=== PATIENT | female | born 2000 | race Caucasian/White ===

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

== ENCOUNTER 2021-03-02 12:25 | Emergency (ER) | payer BC, OTHER ==
[~2021-03-02] VITALS: Ht 165.1 cm; Wt 67.0 kg
[~2021-03-02 12:25] MED LIST: NITR-87 MT
[2021-03-02] MEDS ORDERED: SODI88SP18 BOTHNSTRLS (14:20)
[2021-03-02] MEDS ORDERED: ACET-2708 MT (14:20)
[2021-03-02 14:47] VITALS: BP 121/69
== END 2021-03-02 14:48 | disposition home or self-care (01) ==
LOC: ER 12:34
DX: J06.9 Acute upper respiratory infection, unspecified (principal); J45.909 Unspecified asthma, uncomplicated
CPT/HCPCS: 99282

== ENCOUNTER 2021-04-15 14:02 | Emergency (ER) | payer BC, OTHER ==
[~2021-04-15] VITALS: Ht 157.5 cm; Wt 64.0 kg
[~2021-04-15 14:02] MED LIST changes: +ACET-2708 MT; +SODI88SP18 BOTHNSTRLS
[2021-04-15 14:09] VITALS: BP 131/83
[2021-04-15] MEDS ORDERED: KETOROLAC 30MG/ML VIAL IM ONE (17:30)
[2021-04-15] MEDS ORDERED: ACET-2708 MT (20:37)
== END 2021-04-15 21:39 | disposition home or self-care (01) ==
LOC: ER 14:02
DX: S93.492A Sprain of other ligament of left ankle, initial encounter (principal); X58.XXXA Exposure to other specified factors, initial encounter; Y93.44 Activity, trampolining; Y92.89 Other specified places as the place of occurrence of the external cause
CPT/HCPCS: 73610; 96372; 99283; J1885

== ENCOUNTER 2021-09-14 09:21 | Emergency (ER) | payer MEDICAID ==
[~2021-09-14] VITALS: Ht 157.5 cm; Wt 73.0 kg
[2021-09-14 09:34] VITALS: BP 135/80
[2021-09-14] MEDS ORDERED: ONDANSETRON 4MG ODT PO PRN (10:00)
[2021-09-14 10:04] LABS: EOSINOPHILS % 0.8 % (0.0-5.0); HEMATOCRIT. 39.1 % (36.0-48.0); HEMOGLOBIN. 13.1 g/dL (12.0-16.0); LYMPHOCYTES % 7.9 % (20.0-50.0); MEAN CORPUSCULAR HEMOGLOBIN 28.7 pg (28.0-32.0); MEAN CORPUSCULAR VOLUME 85.8 fL (81.0-99.0); MEAN PLATELET VOLUME 7.4 fl (7.4-10.4); MONOCYTES % 5.6 % (2.0-8.0); NEUTROPHILS % 85.7 % (40.0-76.0); PLATELET 361 x1000/uL (130-400); RED BLOOD CELL COUNT 4.56 mill/uL (4.2-5.4)
[2021-09-14 10:08] LABS: CHLORIDE 107 mEq/L (98-107)
[2021-09-14 10:33] LABS: HCG SCREEN NEGATIVE
[2021-09-14] MEDS ORDERED: IMOD MT (12:22)
[2021-09-14] MEDS ORDERED: ONDA4TAB5 MT (12:23)
== END 2021-09-14 12:53 | disposition home or self-care (01) ==
LOC: ER 09:40
DX: K52.9 Noninfective gastroenteritis and colitis, unspecified (principal); J45.909 Unspecified asthma, uncomplicated
CPT/HCPCS: 36415; 80048; 80076; 81025; 83690; 84703; 85025; 99283; Q0162

== ENCOUNTER 2023-08-12 18:40 | Emergency (ER) | payer MEDICAID ==
[~2023-08-12] VITALS: Ht 152.4 cm; Wt 74.0 kg
[~2023-08-12 18:40] MED LIST changes: +IMOD MT; +ONDA4TAB5 MT; -SODI88SP18 BOTHNSTRLS; +SODI90SP BOTHNSTRLS
[2023-08-12 18:45] VITALS: BP 123/79; PULSE 119; RESP 20; TEMP 98.2; O2SAT 99
== END 2023-08-12 23:35 | disposition left against medical advice (07) ==
LOC: ER 18:40
DX: R22.0 Localized swelling, mass and lump, head (principal); Z53.21 Procedure and treatment not carried out due to patient leaving prior to being seen by health care provider
CPT/HCPCS: 99281